=== PATIENT | female | born 1970 | race Hispanic/Latino ===

== ENCOUNTER 2020-07-09 12:56 | Emergency (ER) | payer OTHER, BC ==
[~2020-07-09 12:56] MED LIST: METFORMIN1000 MG PO; PREVACID30 M2 PO; ZOFRAN ODT4 MG PO
[2020-07-09] MEDS ORDERED: ATORVASTATIN CA80 MG PO (13:35)
[2020-07-09] MEDS ORDERED: JANUVIA50 MG PO (13:36)
[2020-07-09 14:15] VITALS: BP 160/87
== END 2020-07-09 14:15 | disposition home or self-care (01) | DRG 556 ==
LOC: ED 12:56
DX: M25.561 Pain in right knee (principal); E11.9 Type 2 diabetes mellitus without complications; Z79.84 Long term (current) use of oral hypoglycemic drugs